=== PATIENT | male | born 1980 | race Caucasian/White ===

== ENCOUNTER 2023-08-06 11:36 | Emergency (ER) | payer MEDICARE, MEDICAID ==
[~2023-08-06] VITALS: Ht 182.9 cm; Wt 114.0 kg
[2023-08-06 11:54] VITALS: O2SAT 97
[2023-08-06] MEDS ORDERED: D-ME473S50 PO (13:46)
[2023-08-06] MEDS ORDERED: ALBU18HF2 IH (13:46)
[2023-08-06 14:01] VITALS: BP 155/92; PULSE 98; RESP 18; TEMP 98.8
== END 2023-08-06 14:02 | disposition home or self-care (01) ==
LOC: ER 12:54
DX: J20.9 Acute bronchitis, unspecified (principal); I10 Essential (primary) hypertension; E11.9 Type 2 diabetes mellitus without complications; Z20.822 Contact with and (suspected) exposure to COVID-19; Z88.1 Allergy status to other antibiotic agents; Z86.59 Personal history of other mental and behavioral disorders
CPT/HCPCS: 99284; 71045; 87426; 87804 ×2; C9803

== ENCOUNTER 2023-09-12 10:05 | Emergency (ER) | payer MEDICARE, MEDICAID ==
[~2023-09-12] VITALS: Ht 185.4 cm; Wt 100.0 kg
[~2023-09-12 10:05] MED LIST: ALBU18HF2 IH; D-ME473S50 PO
[2023-09-12 10:10] VITALS: BP 135/95; PULSE 98; RESP 16; O2SAT 99
[2023-09-12] MEDS ORDERED: LIDOCAINE HCL/EPINEPHRINE 1%-EPI 1:100,000 20 ML VIAL INFIL ONE (10:15)
[2023-09-12] MEDS ORDERED: ACETAMINOPHEN 325MG TABLET PO ONE (16:15)
[2023-09-12 16:40] VITALS: TEMP 98.7
== END 2023-09-12 16:57 | disposition home or self-care (01) ==
LOC: ER 10:05
DX: S61.511A Laceration without foreign body of right wrist, initial encounter (principal); F31.9 Bipolar disorder, unspecified; E11.9 Type 2 diabetes mellitus without complications; E78.00 Pure hypercholesterolemia, unspecified; I10 Essential (primary) hypertension; F20.9 Schizophrenia, unspecified; Z88.8 Allergy status to other drugs, medicaments and biological substances; X58.XXXA Exposure to other specified factors, initial encounter; Y93.89 Activity, other specified; Y92.89 Other specified places as the place of occurrence of the external cause; Y99.8 Other external cause status
CPT/HCPCS: 12042; 99284; J3490